=== PATIENT | male | born 1945 | race Caucasian/White ===

== ENCOUNTER 2017-02-22 09:05 | Emergency (ER) | payer MEDICARE, MEDICAID ==
[2017-02-22 09:22] VITALS: TEMP 97.7
--- NOTE | 2017-02-22 09:43 | C.PDOC ---
History Of Present Illness The patient, a 71 y/o male, whose PMHx includes HTN, gastritis, hypercholesterolemia and hiatal hernia, presents to the ED for evaluation of chronic epigastric abdominal pain which has been occurring for several months. Patient states he was taking Omeprazole for some time but found no relief. Patient's PMD then changed his medication to Ranitidine; patient states he had been taking the medication without relief. Upon further questioning, patient admits that he only takes his medication on an as-needed basis. Patient states his symptoms worsened last night after he ate pork. Otherwise, patient denies fever, chills, nausea, vomiting, diarrhea, and constipation. Time Seen by Provider: 02/22/17 09:50 Chief Complaint (Nursing): Abdominal Pain History Per: Patient History/Exam Limitations: no limitations Onset/Duration Of Symptoms: Other (+several months ) Location Of Pain/Discomfort: Epigastric Radiation Of Pain To:: None Quality Of Discomfort: "Pain" Associated Symptoms: denies: Fever, Chills, Nausea, Vomiting, Diarrhea, Constipation Additional History Per: Patient Past Medical History Reviewed: Historical Data, Nursing Documentation, Vital Signs Vital Signs: Last Vital Signs Temp 97.7 F 02/22/17 11:06 Pulse 88 02/22/17 11:06 Resp 20 02/22/17 11:06 BP 176/67 H 02/22/17 11:06 Pulse Ox 98 02/22/17 13:10 - Medical History PMH: Gastrointestinal Ulcer, Hiatal Hernia, HTN, Hypercholesterolemia Surgical History: No Surg Hx Family History: States: Unknown Family Hx - Social History Hx Tobacco Use: No Hx Alcohol Use: No Hx Substance Use: No - Immunization History Hx Tetanus Toxoid Vaccination: No Hx Influenza Vaccination: No Hx Pneumococcal Vaccination: Yes Review Of Systems Except As Marked, All Systems Reviewed And Found Negative. Constitutional: Negative for: Fever, Chills Gastrointestinal: Positive for: Abdominal Pain (epigastric ). Negative for: Nausea, Vomiting, Diarrhea, Constipation Physical Exam - Physical Exam Appears: Non-toxic, No Acute Distress Skin: Warm, Dry, No Diaphoretic, No Pale Head: Atraumatic, Normacephalic Eye(s): bilateral: Normal Inspection Oral Mucosa: Moist Neck: Supple Chest: Symmetrical, No Deformity, No Tenderness Cardiovascular: Rhythm Regular, No Murmur Respiratory: Normal Breath Sounds, No Rales, No Rhonchi, No Wheezing Gastrointestinal/Abdominal: Soft, Tenderness (minimal to epigastric region ), No Distention, No Guarding, No Rebound Back: Normal Inspection, No Vertebral Tenderness, No Paraspinal Tenderness Extremity: Normal ROM, No Tenderness, No Deformity, No Swelling Neurological/Psych: Oriented x3, Normal Speech Gait: Steady ED Course And Treatment - Laboratory Results Result Diagrams: 02/22/17 10:06 02/22/17 10:06 Lab Interpretation: No Acute Changes O2 Sat by Pulse Oximetry: 98 (on RA) Pulse Ox Interpretation: Normal Medical Decision Making Medical Decision Making: Impression: 71 y/o male with epigastric pain Prior records reviewed: Patient seen and evaluated in ED on 03/28/15 and had labs and CT A/P showing gastsritis and discharged with Rx Pepcid Plan: * labs * PO * Lidocaine 2% PO * Maalox PO * IV Fluids * reassess and disposition Progress: labs ordered, results are unremarkable. Patient received PO, Lidocaine 2% PO, Maalox PO, Pepcid IV, and IV Fluids. On reassessment, patient is resting comfortably, showing no signs of distress and reports an improvement in his symptoms. Discussed dietary changes with patient and advised him to take his prescribed medications on a daily basis, and not on an as-need basis. Patient is stable for discharge from the ED and is advised to follow up with GI care within a timely manner for further evaluation. Disposition Counseled Patient/Family Regarding: Diagnosis, Need For Followup, Rx Given - Disposition Referrals: Tyler Becerra [Staff Provider] - Quan San MD [Staff Provider] - Disposition: HOME/ ROUTINE Disposition Time: 10:49 Condition: IMPROVED Additional Instructions: Por favor, siga con ortega mdico de cabecera y con IG para debra evaluacin ms detallada [place] la medicacin diariamente [employer] [facility] normales Prescriptions: Sucralfate [Carafate] 1 gm PO DAILY #20 tablet Instructions: Gastritis (DC), Diet for Ulcers and Gastritis (GEN) Print Language: ZAMBIAN - POA Present On Arrival: None - Clinical Impression Clinical Impression: Gastritis - PA / CONCRETE CONVEYOR OPERATOR / Resident Statement MD/DO has reviewed & agrees with the documentation as recorded. - Scribe Statement The provider has reviewed the documentation as recorded by the Scribe (Padma Puckett) All medical record entries made by the Scribe were at my direction and personally dictated by me. I have reviewed the chart and agree that the record accurately reflects my personal performance of the history, physical exam, medical decision making, and the department course for this patient. I have also personally directed, reviewed, and agree with the discharge instructions and disposition.
[2017-02-22] MEDS ORDERED: Lidocaine 2% Viscous 100 ml PO STA (09:56)
[2017-02-22] MEDS ORDERED: Aluminum Hydroxide/Magnesium Hydroxide Susp (30 mL) PO STA (09:56)
[2017-02-22] MEDS ORDERED: Sodium Chloride 0.9% 1,000 ML IV ONE (09:56)
[2017-02-22] MEDS ORDERED: Belladonna-Phenobarbital PO STA (09:56)
[2017-02-22 10:10] LABS: BASO # 0.1 K/uL (0.0-0.2); BASO % 1.2 % (0.0-2.0); EOS # 0.1 K/uL (0.0-0.7); EOS % 1.7 % (0.0-4.0); HEMATOCRIT 46.8 % (35.0-51.0); LYMPH # 1.7 K/uL (1.0-4.3); LYMPH % 30.5 % (20.0-40.0); MEAN CELL VOLUME 87.1 fL (80.0-94.0); MEAN CORPUSCULAR HEMOGLOBIN 28.6 pg (27.0-31.0); MEAN CORPUSCULAR HGB CONC 32.8 g/dL (33.0-37.0); MEAN PLATELET VOLUME 8.3 fL (7.2-11.7); MONO # 0.7 K/uL (0.0-0.8); MONO % 12.2 % (0.0-10.0); NRBC % 0.1 % (0.0-2.0); RED CELL DISTRIBUTION WIDTH 13.8 % (11.5-14.5); WHITE BLOOD COUNT 5.5 K/uL (4.8-10.8)
[2017-02-22 10:16] LABS: CHLORIDE 102 mmol/L (98-107)
[2017-02-22 10:17] LABS: POTASSIUM 4.3 mmol/L (3.6-5.2); SODIUM 144 mmol/L (132-148)
[2017-02-22 10:19] LABS: ALB/GLOB RATIO 1.4 (1.0-2.1); ALKALINE PHOSPHATASE 54 U/L (38-126); ALT/SGPT 58 U/L (21-72); AST/SGOT 46 U/L (17-59); BILIRUBIN,TOTAL 0.5 mg/dL (0.2-1.3); BLOOD UREA NITROGEN 18 mg/dL (9-20); CARBON DIOXIDE 28 mmol/L (22-30); GFR AFRICAN-AMERICAN > 60; GLUCOSE,RANDOM 96 mg/dL (75-110); TOTAL PROTEIN 7.4 g/dL (6.3-8.3)
[2017-02-22 10:20] LABS: CALCIUM 9.6 mg/dl (8.6-10.4)
[2017-02-22] MEDS ORDERED: Belladonna-Phenobarbital ONE (10:20)
[2017-02-22] MEDS ORDERED: Sodium Chloride 0.9% 1,000 ML ONE (10:20)
[2017-02-22] MEDS ORDERED: Aluminum Hydroxide/Magnesium Hydroxide Susp (30 mL) ONE (10:20)
[2017-02-22 10:34] LABS: RBC URINE < 1 /hpf (0-3); URINE BILIRUBIN NEGATIVE (NEGATIVE); URINE BLOOD NEGATIVE (NEGATIVE); URINE COLOR Straw (YELLOW); URINE GLUCOSE (UA) NORMAL (Normal); URINE KETONE NEGATIVE (NEGATIVE); URINE LEUKOCYTE ESTERASE NEG Leu/uL (Negative); URINE PROTEIN NEGATIVE (NEGATIVE); URINE UROBILINOGEN NORMAL mg/dL (0.2-1.0); WBC URINE < 1 /hpf (0-5)
[2017-02-22 11:08] VITALS: BP 176/67; PULSE 88; RESP 20
[2017-02-22 12:50] VITALS: O2SAT 98
== END 2017-02-22 11:06 | disposition home or self-care (01) ==
LOC: C.ER 09:05
DX: K29.70 Gastritis, unspecified, without bleeding (principal); E78.00 Pure hypercholesterolemia, unspecified; I10 Essential (primary) hypertension
CPT/HCPCS: 80053; 81001; 83690; 85025; 96361; 96374; 99285; J7040